=== PATIENT | female | born 1960 | race African-American/Black ===

== ENCOUNTER → 2016-11-01 | Outpatient (CLI) | payer OTHER ==
--- NOTE | ~2016-11-01 | NM8 ---
[facility] A Service of [facility] RADIOLOGY TEXT RESULTS PATIENT: KATI GARDUNO LOCATION: [facility] : 60 UNIT #: [id number] AGE: [address]: Conrado Lozoya MD SEX: F ORDER DR: [id number] [facility] [address] [place], [place] [address] [id number] O MR#: [id number] Acc #: [id number] NAME: KATI GARDUNO : 1960 SEX: F STUDY DATE/TIME: 11/01/2016 13:11 UNIT: [facility] ROOM: STUDY DESCRIPTION: NM Bone or Joint Whole Body Attending Physician: Conrado Lozoya M.D. Referring Physician: Conrado Lozoya M.D. Ordering Physician: Conrado Lozoya M.D. Primary Care Physician: Robert Barroso M.D. MEDICAL IMAGING REPORT This report is preliminary unless electronic signature is present EXAM Whole-body bone scan 11/01/2016 HISTORY 56-year-old female with osteoarthritis of the shoulder, knee and neck. Left shoulder and neck pain since 2009. Left knee pain for greater than 20 years, for reasons unknown. No documented injury. No documented history of malignancy. COMPARISON Left knee, right shoulder, cervical spine, bilateral standing AP knee radiographs performed 10/29/2016 at [facility]. Correlation is also made to CT abdomen and pelvis bone windows 09/05/2015 [facility]. FINDINGS Following the intravenous administration of 26.6 mCi Tc-99m MDP in a right antecubital fossa vein, delayed anterior-posterior whole body planar images were acquired, along with anterolateral views of the knees, ankles, oblique views of the neck and chest, and anatomic views of the arms. FINDINGS Increased uptake is demonstrated within the maxilla bilaterally which is nonspecific but may be on the basis of periodontal disease. Mild uptake is demonstrated within the midfoot regions bilaterally, oxeyl-khevqrn-xbhq-left. There is also mild uptake within the bilateral wrist joints, and within the bilateral acromioclavicular joints of the shoulders in a relatively symmetric fashion. Mild uptake within bilateral knee joints, slightly greatest in the lateral compartments, slightly greatest on the left. IMPRESSION STS. [facility] A Service of [facility] RADIOLOGY TEXT RESULTS PATIENT: KAT[facility]ARDUNO [id number] 60 UNIT #: [id number] AGE: [address]: Conrado Lozoya MD SEX: F ORDER DR: 1. Mild degenerative pattern of radiopharmaceutical uptake is demonstrated within the bilateral AC joints, wrists, midfoot rib regions and within the fuxw-ewvmgqa-dszw-right knees. 2. There is fairly intense uptake within the maxilla bilaterally, which is nonspecific but may related to periodontal disease. Dictated by... Ellyn Morris M.D. THIS IS AN ELECTRONICALLY VERIFIED REPORT Ellyn Morris M.D. at 11/06/2016 8:44 AM CANDACE/chandana TD: 11/01/2016 22:16 JOB #: [id number] MEDICAL IMAGING REPORT Page 1 of 1 COPY
== END | disposition home or self-care (01) ==
LOC: CNUC 09:00
DX: M19.019 Primary osteoarthritis, unspecified shoulder (principal); M17.9 Osteoarthritis of knee, unspecified; M47.892 Other spondylosis, cervical region; R94.8 Abnormal results of function studies of other organs and systems
CPT/HCPCS: 78306; A9503